=== PATIENT | female | born 1990 | race Caucasian/White ===

== ENCOUNTER → 2021-03-25 | Outpatient (CLI) | payer OTHER ==
[2021-03-25 16:59] LABS: ALBUMIN 4.4 g/dL (3.5-5.0)
[2021-03-25 17:00] LABS: POTASSIUM 4.2 mmol/L (3.5-5.1)
[2021-03-25 17:01] LABS: CALCIUM 9.5 mg/dL (8.3-10.5)
[2021-03-25 17:02] LABS: TOTAL PROTEIN 7.6 g/dL (6.4-8.3)
[2021-03-25 17:04] LABS: TOTAL BILIRUBIN 0.9 mg/dL (0.2-1.2)
== END ==
LOC: LAB 16:39
PROVIDERS: Family Medicine
DX: Z13.1 Encounter for screening for diabetes mellitus (principal); E06.3 Autoimmune thyroiditis

== ENCOUNTER → 2021-03-29 | Outpatient (CLI) | payer OTHER ==
[2021-03-29 22:39] LABS: T3 FREE 2.5 pg/mL (1.7-3.7)
== END ==
LOC: LAB 08:23
PROVIDERS: Family Medicine
DX: Z13.1 Encounter for screening for diabetes mellitus (principal); E06.3 Autoimmune thyroiditis

== ENCOUNTER → 2021-05-07 | Outpatient (CLI) | payer OTHER | LOC: LAB 15:26 | DX: E06.3 Autoimmune thyroiditis (principal) ==

== ENCOUNTER → 2021-08-31 | Outpatient (CLI) | payer OTHER | LOC: LAB 14:44 | DX: E06.3 Autoimmune thyroiditis (principal) ==